=== PATIENT | male | born 1985 | race African-American/Black ===

== ENCOUNTER 2016-12-01 13:46 | Emergency (ER) | payer SELFPAY ==
[2016-12-01 14:02] VITALS: BP 139/61
[2016-12-01] MEDS ORDERED: CIPROFLOXACIN HCL/DEXAMETH OTIC DROP 7.5 ML AD ONE (14:15)
[2016-12-01] MEDS ORDERED: IBUPROFEN 800 MG TABLET PO ONE (14:15)
--- NOTE | 2016-12-01 14:33 | ER Document Report ---
HPI - HPI Patient complains to provider of: right ear and right side of face pain Onset: This morning Onset/Duration: Sudden Quality of pain: Throbbing Severity: Moderate Pain Level: 3 Context: Patient states his right ear and right [employer] started hurting this morning. States he has gotten some water in his ear. Associated Symptoms: None Exacerbated by: Denies Relieved by: Denies Similar symptoms previously: No Recently seen / treated by doctor: No - ROS ROS below otherwise negative: Yes Systems Reviewed and Negative: Yes All other systems reviewed and negative - CONSTITUTIONAL Constitutional: DENIES: Fever - EENT EENT: REPORTS: Ear Pain. DENIES: Sore Throat, Congestion - NEURO Neurology: REPORTS: Headache - CARDIOVASCULAR Cardiovascular: DENIES: Chest pain - RESPIRATORY Respiratory: DENIES: Trouble Breathing - GASTROINTESTINAL Gastrointestinal: DENIES: Abdominal Pain - URINARY Urinary: DENIES: Dysuria - MUSCULOSKELETAL Musculoskeletal: DENIES: Extremity pain - DERM Skin Color: Normal Skin Problems: None Past Medical History - General Information source: Patient - Social History Smoking Status: Never Smoker Frequency of alcohol use: None Drug Abuse: None Lives with: Family Family History: Reviewed & Not Pertinent Patient has suicidal ideation: No Patient has homicidal ideation: No - Medical History Medical History: Negative Surgical Hx: Negative - Immunizations Immunizations up to date: Yes Hx Diphtheria, Pertussis, Tetanus Vaccination: Yes Vertical Provider Document - CONSTITUTIONAL Agree With Documented VS: Yes Exam Limitations: No Limitations General Appearance: WD/WN, Mild Distress - INFECTION CONTROL TRAVEL OUTSIDE OF THE [place] IN LAST 30 DAYS: No - HEENT HEENT: Atraumatic, Normocephalic Notes: Right canal red with mild edema, pain with movement of right auricle. TM dull. Left canal normal and dullness noted to TM. - NECK Neck: Normal Inspection, Supple - RESPIRATORY Respiratory: Breath Sounds Normal, No Respiratory Distress O2 Sat by Pulse Oximetry: 97 - CARDIOVASCULAR Cardiovascular: Regular Rate, Regular Rhythm - MUSCULOSKELETAL/EXTREMETIES Musculoskeletal/Extremeties: MAEW - NEURO Level of Consciousness: Awake, Alert, Appropriate - DERM Integumentary: Warm, Dry Course - Vital Signs Vital signs: Temp Pulse Resp BP Pulse Ox 99.0 F 55 L 16 139/61 H 97 12/01/16 14:00 12/01/16 14:00 12/01/16 14:00 12/01/16 14:00 12/01/16 14:00 Discharge - Discharge Clinical Impression: Acute otitis externa of right ear Qualifiers: Otitis externa type: unspecified type Qualified Code(s): H60.501 - Unspecified acute noninfective otitis externa, right ear Condition: Good Disposition: HOME, SELF-CARE Instructions: Acetaminophen, Otitis Externa ([facility]), Use of Ear Drops ([facility]) Additional Instructions: 4 drops to right ear twice a day for 7 days. No water in ears. Tylenol or ibuprofen as needed for pain Follow-up with your doctor if not better in 4-5 days Prescriptions: Ibuprofen 800 mg PO TID PRN #20 tablet PRN Reason: Tramadol HCl [Ultram] 50 mg PO QID #15 tablet
== END 2016-12-01 14:35 | disposition home or self-care (01) ==
LOC: ER 13:46
DX: H60.501 Unspecified acute noninfective otitis externa, right ear (principal); H92.01 Otalgia, right ear; R51 Headache
CPT/HCPCS: 99282; J3490

== ENCOUNTER 2016-12-02 04:57 | Emergency (ER) | payer SELFPAY ==
[2016-12-02 05:12] VITALS: BP 148/71
[2016-12-02] MEDS ORDERED: IBUPROFEN 800 MG TABLET PO ONE (05:18)
--- NOTE | 2016-12-02 05:21 | ER Document Report ---
ED General - General Chief Complaint: Ear Pain Stated Complaint: HEADACHE/EAR PAIN Time Seen by Provider: 12/02/16 05:00 Mode of Arrival: Ambulatory Information source: Patient Notes: 31-year-old male who was diagnosed with otitis externa yesterday started on otic antibiotic drops and given prescriptions for pain medication presents with complaints of ear pain. Patient states that he would like ibuprofen, that he woke up late and the pharmacies were closed and he was unable to fill his prescription. Patient denies any fevers or chills nausea vomiting or diarrhea TRAVEL OUTSIDE OF THE [place] IN LAST 30 DAYS: No - HPI Onset: Yesterday Onset/Duration: Persistent Quality of pain: Sharp Severity: Mild Pain Level: 1 Associated symptoms: Earache Exacerbated by: Denies Relieved by: Denies Similar symptoms previously: Yes Recently seen / treated by doctor: Yes - Related Data Allergies/Adverse Reactions: No Known Allergies Allergy (Verified 12/01/16 13:57) Past Medical History - Social History Smoking Status: Never Smoker Cigarette use (# per day): No Chew tobacco use (# tins/day): No Smoking Education Provided: No Family History: Reviewed & Not Pertinent Patient has suicidal ideation: No Patient has homicidal ideation: No Renal/ Medical History: Denies: Hx Peritoneal Dialysis - Immunizations Immunizations up to date: Yes Hx Diphtheria, Pertussis, Tetanus Vaccination: Yes Review of Systems - Review of Systems Notes: REVIEW OF SYSTEMS: CONSTITUTIONAL : Denies fever, chills, or sweats. Denies recent illness. EENT: Admits to right ear pain CARDIOVASCULAR: Denies chest pain. Denies palpitations or racing or irregular heart beat. Denies ankle edema. RESPIRATORY: Denies cough, cold, or chest congestion. Denies shortness of breath, difficulty breathing, or wheezing. GASTROINTESTINAL: Denies abdominal pain or distention. Denies nausea, vomiting , or diarrhea. Denies blood in vomitus, stools, or per rectum. Denies black, tarry stools. Denies constipation. GENITOURINARY: Denies difficulty urinating, painful urination, burning, frequency, blood in urine, or discharge. MUSCULOSKELETAL: Denies back or neck pain or stiffness. Denies joint pain or swelling. SKIN: Denies rash, lesions or sores. HEMATOLOGIC : Denies easy bruising or bleeding. LYMPHATIC: Denies swollen, enlarged glands. NEUROLOGICAL: Denies confusion or altered mental status. Denies passing out or loss of consciousness. Denies dizziness or lightheadedness. Denies headache. Denies weakness or paralysis or loss of use of either side. Denies problems with gait or speech. Denies sensory loss, numbness, or tingling. Denies seizures. PSYCHIATRIC: Denies anxiety or stress. Denies depression, suicidal ideation, or homicidal ideation. ALL OTHER SYSTEMS REVIEWED AND NEGATIVE. Dictation was performed using [employer] voice recognition software PHYSICAL EXAMINATION: GENERAL: Well-appearing, well-nourished and in no acute distress. HEAD: Atraumatic, normocephalic. EYES: Pupils equal round and reactive to light, extraocular movements intact, sclera anicteric, conjunctiva are normal. ENT: Left TM is clear right TM is pustular with swelling of the external canal. There is no mastoid tenderness there is right-sided anterior cervical or adenopathy. LUNGS: Breath sounds clear to auscultation bilaterally and equal. No wheezes rales or rhonchi. HEART: Regular rate and rhythm without murmurs ABDOMEN: Soft, nontender, nondistended abdomen. No guarding, no rebound. No masses appreciated. Musculoskeletal: Normal range of motion, no pitting or edema. No cyanosis. NEUROLOGICAL: Cranial nerves grossly intact. Normal speech, normal gait. Normal sensory, motor exams PSYCH: Normal mood, normal affect. SKIN: Warm, Dry, normal turgor, no rashes or lesions noted. Physical Exam - Vital signs Vitals: Temp Pulse Resp BP Pulse Ox 98.3 F 51 L 18 148/71 H 97 12/02/16 05:08 12/02/16 05:08 12/02/16 05:08 12/02/16 05:08 12/02/16 05:08 Course - Re-evaluation Re-evalutation: 12/02/16 05:20 Patient only requests ibuprofen for pain, he has no other concerns at this time. I will george his request and I will discharge home at this time Patient has been instructed to return immediately if he has any mastoid tenderness worsening fevers or any other concerns After performing a Medical Screening Examination, I estimate there is LOW risk for ACUTE CORONARY SYNDROME, RESPIRATORY FAILURE, SEPSIS OR MENINGITIS, thus I consider the discharge disposition reasonable. I have reevaluated this patient multiple times and no significant life threatening changes are noted. The patient and I have discussed the diagnosis and risks, and we agree with discharging home with close follow-up. We also discussed returning to the Emergency Department immediately if new or worsening symptoms occur. We have discussed the symptoms which are most concerning (e.g., changing or worsening pain, trouble swallowing or breathing, neck stiffness, fever) that necessitate immediate return. 12/02/16 05:21 - Vital Signs Vital signs: Temp Pulse Resp BP Pulse Ox 98.3 F 51 L 18 148/71 H 97 12/02/16 05:08 12/02/16 05:08 12/02/16 05:08 12/02/16 05:08 12/02/16 05:08 Discharge - Discharge Clinical Impression: Acute otitis externa of right ear Qualifiers: Otitis externa type: other infective Qualified Code(s): H60.391 - Other infective otitis externa, right ear Ear pain Qualifiers: Laterality: right Qualified Code(s): H92.01 - Otalgia, right ear Condition: Stable Disposition: HOME, SELF-CARE Instructions: Use of Ear Drops ([facility]), Otitis Externa ([facility]) Additional Instructions: Please return immediately if symptoms worsen or fevers occur
== END 2016-12-02 05:23 | disposition home or self-care (01) ==
LOC: ER 04:57
DX: H60.391 Other infective otitis externa, right ear (principal); H92.01 Otalgia, right ear
CPT/HCPCS: 99282